=== PATIENT | female | born 1950 ===

== ENCOUNTER 2022-06-13 13:10 | Emergency (ER) | payer SELFPAY ==
[2022-06-13 13:12] VITALS: BP 138/72
== END 2022-06-13 22:00 | disposition left against medical advice (07) ==
LOC: ED 13:10
DX: M79.18 Myalgia, other site (principal); Z53.21 Procedure and treatment not carried out due to patient leaving prior to being seen by health care provider; V87.7XXA Person injured in collision between other specified motor vehicles (traffic), initial encounter; Y93.89 Activity, other specified; Y92.488 Other paved roadways as the place of occurrence of the external cause; Y99.8 Other external cause status